=== PATIENT | male | born 1965 | race Caucasian/White ===

== ENCOUNTER 2016-10-19 11:20 | Emergency (ER) | payer OTHER ==
[~2016-10-19] VITALS: Ht 177.8 cm; Wt 80.0 kg
[~2016-10-19 11:20] MED LIST: PRAZ1 PO; SERO100T PO; SERT100 PO
[2016-10-19 11:31] VITALS: BP 187/95; PULSE 99; RESP 20; O2SAT 94
[2016-10-19] MEDS ORDERED: diphenhydrAMINE HCL 50 MG/ML VIAL IM ONE (11:45)
[2016-10-19] MEDS ORDERED: MIDAZOLAM HCL 2 MG/2 ML VIAL IM ONE (11:45)
[2016-10-19] MEDS ORDERED: HALOPERIDOL LACTATE 5 MG/ML AMP IM ONE (11:45)
--- NOTE | 2016-10-19 12:03 | PD ---
HPI Chief Complaint: Psychiatric Symptoms Time Seen by Provider: 11:33 Travel History International Travel<30 days: No Contact w/Intl Traveler<30days: No Traveled to known affect area: No History of Present Illness HPI 51-year-old male with history of bipolar disorder, schizophrenia here as a Moise act. Patient reportedly came home and found his significant other having sexual intercourse with another man. Patient left the home, began drinking and made some suicidal statements to a bystander who called 911. Patient was brought here by police. Patient is agitated, slightly combative despite being in handcuffs. States multiple times "I'm not going to fight with you, but I am going to leave". Patient intermittently tearful, stating "I can't state what happened to a woman". Patient is evasive, laying depressed and having suicidal ideation. Denies any medical complaints. PFSH Past Medical History Bipolar Disorder: Yes Diabetes: Yes Schizophrenia: Yes Past Surgical History Abdominal Surgery: Yes (HERNIA) Thoracic Surgery: Yes (BACK) Social History Alcohol Use: Yes (ETOH ABUSE, ) Tobacco Use: Yes (5) Substance Use: Yes (ALCOHOL ABUSE) Allergies-Medications (Allergen,Severity, Reaction): Coded Allergies: No Known Allergies (Unverified , 02/03/14) Reported Meds & Prescriptions Reported Meds & Active Scripts Active Reported Minipress (Prazosin HCl) 1 Mg Cap 1 Mg PO TID Seroquel 100 mg (Quetiapine Fumarate) 100 Mg Tab 100 Mg PO BID Zoloft (Sertraline HCl) 100 Mg Tab 100 Mg PO DAILY Review of Systems ROS Limitations: Uncooperative, Combative Physical Exam Exam Limitations: Uncooperative, Combative Narrative GENERAL: Middle-aged male, agitated and somewhat combative, in handcuffs with police at bedside SKIN: Focused skin assessment warm/dry. HEAD: Normocephalic. EYES: No scleral icterus. No injection or drainage. ENT: Mucous membranes pink and moist. NECK: Supple CARDIOVASCULAR: Regular rate and rhythm. RESPIRATORY: No accessory muscle use. MUSCULOSKELETAL: Moves all extremities strong, normal gait NEUROLOGICAL: Awake and alert. Motor grossly within normal limits. Normal speech. PSYCHIATRIC: Agitated, combative and intermittently tearful. Admits to depression, suicidal ideation. Denies delusions, hallucinations, homicidal ideation Data Data Last Documented VS Vital Signs Date Time Temp Pulse Resp B/P Pulse Ox O2 Delivery O2 Flow Rate FiO2 10/19/16 12:04 98.3 83 18 143/75 96 Room Air Orders Complete Blood Count With Diff (10/19/16 11:34) Comprehensive Metabolic Panel (10/19/16 11:34) Psych Screen (10/19/16 11:34) Haloperidol Inj (Haldol Inj) (10/19/16 11:45) Drug Screen, Random Urine (10/19/16 11:34) Alcohol (Ethanol) (10/19/16 11:34) Midazolam Inj (Versed Inj) (10/19/16 11:45) Diphenhydramine Inj (Benadryl Inj) (10/19/16 11:45) Labs Laboratory Tests Test 10/19/16 10/19/16 12:35 12:56 White Blood Count 5.3 TH/MM3 Red Blood Count 4.31 MIL/MM3 Hemoglobin 14.2 GM/DL Hematocrit 41.0 % Mean Corpuscular Volume 95.1 FL Mean Corpuscular Hemoglobin 33.0 PG Mean Corpuscular Hemoglobin 34.7 % Concent Red Cell Distribution Width 13.7 % Platelet Count 260 TH/MM3 Mean Platelet Volume 9.5 FL Neutrophils (%) (Auto) 68.6 % Lymphocytes (%) (Auto) 15.6 % Monocytes (%) (Auto) 12.0 % Eosinophils (%) (Auto) 1.1 % Basophils (%) (Auto) 2.7 % Neutrophils # (Auto) 3.6 TH/MM3 Lymphocytes # (Auto) 0.8 TH/MM3 Monocytes # (Auto) 0.6 TH/MM3 Eosinophils # (Auto) 0.1 TH/MM3 Basophils # (Auto) 0.1 TH/MM3 CBC Comment DIFF FINAL Differential Comment Sodium Level 143 MEQ/L Potassium Level 3.5 MEQ/L Chloride Level 108 MEQ/L Carbon Dioxide Level 25.8 MEQ/L Anion Gap 9 MEQ/L Blood Urea Nitrogen 8 MG/DL Creatinine 0.82 MG/DL Estimat Glomerular Filtration 100 ML/MIN Rate Random Glucose 88 MG/DL Calcium Level 8.3 MG/DL Total Bilirubin 0.4 MG/DL Aspartate Amino Transf 128 U/L (AST/SGOT) Alanine Aminotransferase 96 U/L (ALT/SGPT) Alkaline Phosphatase 91 U/L Total Protein 7.9 GM/DL Albumin 3.9 GM/DL Ethyl Alcohol Level 358 MG/DL Urine Opiates Screen NEG Urine Barbiturates Screen NEG Urine Amphetamines Screen NEG Urine Benzodiazepines Screen NEG Urine Cocaine Screen POS Urine Cannabinoids Screen NEG MDM Medical Decision Making Medical Screen Exam Complete: Yes Emergency Medical Condition: Yes Medical Record Reviewed: Yes Differential Diagnosis 51-year-old male with history of bipolar, schizophrenia here as a Moise act after suicidal statements were made to bystander after patient found his significant other sleeping with another man. Differential includes depression, suicidal ideation, bipolar disorder, adjustment reaction, alcohol intoxication, substance induced mood disorder. Narrative Course For patient safety and ours he was given call mean agents of Haldol 5 mg, Versed 2 mg, Benadryl 50 mg. CBC, CMP, blood alcohol level and urine drug screen were obtained and notable for blood alcohol level 358. Positive urine cocaine. AST 128, ALT 96 likely due to underlying alcohol abuse. Patient medically clear for psychiatric evaluation. Diagnosis Primary Impression: Substance induced mood disorder Additional Impression: Alcohol intoxication Qualified Code: F10.920 - Alcohol intoxication, uncomplicated Shivani Romeo MD Oct 19, 2016 12:03
[2016-10-19 12:04] VITALS: BP 143/75; PULSE 83; RESP 18; TEMP 98.3; O2SAT 96
[2016-10-19 13:12] LABS: AUTOMATED NEUTROPHIL # 3.6 TH/MM3 (1.8-7.7); BASOPHIL # 0.1 TH/MM3 (0-0.2); BASOPHIL % 2.7 % (0.0-2.0); EOSINOPHIL # 0.1 TH/MM3 (0-0.4); EOSINOPHIL % 1.1 % (0.0-4.0); HEMO FLAGS DIFF FINAL; LYMPH % 15.6 % (9.0-44.0); LYMPHOCYTE # 0.8 TH/MM3 (1.0-4.8); MEAN CELL VOLUME 95.1 FL (80.0-100.0); MEAN CORPUSCULAR HGB CONC 34.7 % (32.0-36.0); NEUT % 68.6 % (16.0-70.0); PLATELET COUNT 260 TH/MM3 (150-450); RED BLOOD COUNT 4.31 MIL/MM3 (4.50-5.90); RED CELL DISTRIBUTION WIDTH 13.7 % (11.6-17.2); WHITE BLOOD COUNT 5.3 TH/MM3 (4.0-11.0)
[2016-10-19 13:23] LABS: AMPHETAMINE, URINE NEG (NEG); BARBITURATES, URINE NEG (NEG); COCAINE, URINE POS (NEG)
[2016-10-19 13:28] LABS: ALT (GPT) 96 U/L (12-78); ANION GAP 9 MEQ/L (5-15); AST (GOT) 128 U/L (15-37); BICARBONATE 25.8 MEQ/L (21.0-32.0); BLOOD UREA NITROGEN 8 MG/DL (7-18); CHLORIDE 108 MEQ/L (98-107); GLOMERULAR FILTRATION RATE 100 ML/MIN (>89); POTASSIUM 3.5 MEQ/L (3.5-5.1); SODIUM (NA) 143 MEQ/L (136-145)
[2016-10-19 13:33] LABS: ALKALINE PHOSPHATASE 91 U/L (45-117); TOTAL BILIRUBIN ADULT 0.4 MG/DL (0.2-1.0)
[2016-10-19 14:10] VITALS: BP 129/74; PULSE 64; RESP 18
[2016-10-19] MEDS ORDERED: LORazepam 2 MG/ML VIAL IV PUSH PRN ×4 (18:15)
[2016-10-19] MEDS ORDERED: FLUMAZENIL 0.5 MG/5 ML VIAL IV PUSH PRN (18:15)
[2016-10-19] MEDS ORDERED: LORazepam 1 MG TAB PO PRN (18:15)
[2016-10-19] MEDS ORDERED: LORazepam 2 MG TAB PO PRN (18:15)
[2016-10-19 22:00] VITALS: BP 151/70; PULSE 73; RESP 18; TEMP 96.9; O2SAT 98
[2016-10-20 02:00] VITALS: BP 165/100; PULSE 96; RESP 20; TEMP 97.1; O2SAT 98
[2016-10-20 06:10] VITALS: BP 185/95; PULSE 68; RESP 20; TEMP 98.1; O2SAT 100
[2016-10-20 08:24] VITALS: BP 169/96; PULSE 86; RESP 20; O2SAT 98
--- NOTE | 2016-10-20 10:03 | PD ---
History of Present Illness Chief Complaint: Psychiatric Symptoms Time Seen by Provider: 09:30 Travel History International Travel<30 Days: No Contact w/Intl Traveler<30days: No Known affected area: No Legal Status Legal Status: Moise Act Moise Act Signed By: Charmaine HUI Moise Act Comment: Froy Grimes History of Present Illness: This is a 51-year-old male with a long history of daily alcohol consumption who apparently became extremely intoxicated last night. He told the contracts law professor that he wanted to hurt himself because he watched his having sex with another man. At this point, the patient admits to being aware of his having sex with another man but states he did not watch it. He states the other man was unaware that he was to this woman. He has also been drinking quite heavily and his alcohol level was 358 last night. He told the contracts law professor he would rather the officer killed him then to take him to retirement. At this point the patient is denying any suicidal ideation. He recognizes he has an alcohol problem but is unwilling to stop, despite this physician's encouragement to do so. He reportedly has a history of treatment for schizophrenia and bipolar disorder and has been hospitalized at [facility] and here at [facility]. Patient's toxicology screen was also positive for cocaine. This physician does not feel the patient has either significant symptoms of schizophrenia or bipolar disorder at this time, especially in the face of both significant alcohol consumption and cocaine abuse. Although the patient remains at risk for harming himself, it would be counter therapeutic to admit him for psychiatric reasons. He is being referred instead to and [facility]. [facility] Past Medical History Bipolar Disorder: Yes Diabetes: Yes Diminished Hearing: Yes (mild bilat. hearing loss) Hepatitis: Yes (Hep. C) Hypertension: Yes Schizophrenia: Yes Tetanus Vaccination: < 5 Years Influenza Vaccination: No Past Surgical History Abdominal Surgery: Yes (spleenectomy) Ear Surgery: Yes (Right ear pinna surgery) Thoracic Surgery: Yes (sx. s/p multiple rib fx. on right) Psychiatric History Psychiatric History Hx Psychiatric Treatment: schizophrenia, bipolar History of Inpatient Treatment: Yes Guns or firearms in home: No Social History Hx Alcohol Use: Yes ("all day, every day", states he drinks "everything") Hx Tobacco Use: No Hx Substance Use: Yes (ETOH-"all day, everyday"--drinks beer/liquor; cocaine weekly; marajuana occ) Substance Use Type: Alcohol, Cocaine, Other Other Substances Used: smokeless tobacco for several yrs. Hx of Substance Use Treatment: Yes Allergies-Medications (Allergen,Severity, Reaction): Coded Allergies: No Known Allergies (Unverified , 02/03/14) Reported Meds & Prescriptions Reported Meds & Active Scripts Active Reported Minipress (Prazosin HCl) 1 Mg Cap 1 Mg PO TID Seroquel 100 mg (Quetiapine Fumarate) 100 Mg Tab 100 Mg PO BID Zoloft (Sertraline HCl) 100 Mg Tab 100 Mg PO DAILY Review of Systems Except as stated in HPI: all other systems reviewed are Neg Exam Alert: Yes [place]: Person, Place, Date, Situation Mood: Calm Affect: Appropriate Speech: Clear, Logical Eye Contact: Normal Memory Intact: Immediate, Recent, Remote Insight/Judgement Adequate MDM Medical Decision Making Medical Record Reviewed: Yes Assessment/Plan This is a 51-year-old male with an extensive history of alcohol abuse and recent cocaine abuse, who has made recent threats to harm himself after watching his have sex with another man. Patient remains at high risk for self-harm due to alcohol and drug abuse as well as his social stressors. However, this physician continues to feel it is counter therapeutic to admit him for psychiatric reasons. Patient's main problem is alcohol abuse and drug abuse. He is strongly encouraged to get treatment for those problems and this physician does not wish to enable him to continue to drink and abuse drugs by rescuing him from this current social stressor. Alcohol level is being checked at this time to make sure that this evaluation is valid in the face of a high alcohol level last night. After this laboratory assessment is complete, the patient may be discharged. Orders Complete Blood Count With Diff (10/19/16 11:34) Comprehensive Metabolic Panel (10/19/16 11:34) Psych Screen (10/19/16 11:34) Haloperidol Inj (Haldol Inj) (10/19/16 11:45) Drug Screen, Random Urine (10/19/16 11:34) Alcohol (Ethanol) (10/19/16 11:34) Midazolam Inj (Versed Inj) (10/19/16 11:45) Diphenhydramine Inj (Benadryl Inj) (10/19/16 11:45) Diet Regular Basic (10/19/16 Dinner) Alcohol Withdrawal Asmt-Ciwa ONCE (10/19/16 18:13) Flumazenil Inj (Romazicon Inj) (10/19/16 18:15) Lorazepam (Ativan) (10/19/16 18:15) Lorazepam Inj (Ativan Inj) (10/19/16 18:15) Lorazepam (Ativan) (10/19/16 18:15) Lorazepam Inj (Ativan Inj) (10/19/16 18:15) Lorazepam Inj (Ativan Inj) (10/19/16 18:15) Lorazepam Inj (Ativan Inj) (10/19/16 18:15) Diet Regular Basic (10/20/16 Breakfast) Alcohol (Ethanol) (10/20/16 09:55) Results Vital Signs Date Time Temp Pulse Resp B/P Pulse Ox O2 Delivery O2 Flow Rate FiO2 10/20/16 08:24 86 20 169/96 98 Room Air 10/20/16 06:10 98.1 68 20 185/95 100 10/20/16 02:00 97.1 96 20 165/100 98 Room Air 10/19/16 22:00 96.9 73 18 151/70 98 Room Air 10/19/16 14:10 64 18 129/74 Room Air 10/19/16 12:04 98.3 83 18 143/75 96 Room Air 10/19/16 11:31 99 20 187/95 94 Laboratory Tests Test 10/19/16 10/19/16 12:35 12:56 White Blood Count 5.3 Red Blood Count 4.31 Hemoglobin 14.2 Hematocrit 41.0 Mean Corpuscular Volume 95.1 Mean Corpuscular Hemoglobin 33.0 Mean Corpuscular Hemoglobin 34.7 Concent Red Cell Distribution Width 13.7 Platelet Count 260 Mean Platelet Volume 9.5 Neutrophils (%) (Auto) 68.6 Lymphocytes (%) (Auto) 15.6 Monocytes (%) (Auto) 12.0 Eosinophils (%) (Auto) 1.1 Basophils (%) (Auto) 2.7 Neutrophils # (Auto) 3.6 Lymphocytes # (Auto) 0.8 Monocytes # (Auto) 0.6 Eosinophils # (Auto) 0.1 Basophils # (Auto) 0.1 CBC Comment DIFF FINAL Differential Comment Sodium Level 143 Potassium Level 3.5 Chloride Level 108 Carbon Dioxide Level 25.8 Anion Gap 9 Blood Urea Nitrogen 8 Creatinine 0.82 Estimat Glomerular Filtration 100 Rate Random Glucose 88 Calcium Level 8.3 Total Bilirubin 0.4 Aspartate Amino Transf 128 (AST/SGOT) Alanine Aminotransferase 96 (ALT/SGPT) Alkaline Phosphatase 91 Total Protein 7.9 Albumin 3.9 Ethyl Alcohol Level 358 Urine Opiates Screen NEG Urine Barbiturates Screen NEG Urine Amphetamines Screen NEG Urine Benzodiazepines Screen NEG Urine Cocaine Screen POS Urine Cannabinoids Screen NEG Diagnosis Primary Impression: Alcohol abuse Additional Impression: Cocaine abuse Problem Qualifiers Nawaf [place] MD Oct 20, 2016 10:03
[2016-10-20 11:03] VITALS: BP 169/96
== END 2016-10-20 11:20 | disposition home or self-care (01) ==
LOC: NEPD 11:20 → NEPJ 10-20 11:20
DX: F10.120 Alcohol abuse with intoxication, uncomplicated (principal); F14.10 Cocaine abuse, uncomplicated; Y90.8 Blood alcohol level of 240 mg/100 ml or more; Z79.899 Other long term (current) drug therapy
CPT/HCPCS: 80053; 80307; 85025; 96372; 99284; J1200; J1630; J2250